=== PATIENT | male | born 1980 | race Hispanic/Latino ===

== ENCOUNTER 2021-09-28 22:07 | Emergency (ER) | payer OTHER ==
[2021-09-28] MEDS ORDERED: Lidocaine 1% 20 ML MDV ONE (22:45)
== END 2021-09-28 23:00 ==
LOC: NAV ERS 22:07
DX: S01.111A Laceration without foreign body of right eyelid and periocular area, initial encounter (principal); W19.XXXA Unspecified fall, initial encounter
CPT/HCPCS: 12011